=== PATIENT | female | born 1960 | race Caucasian/White ===

== ENCOUNTER 2020-12-01 19:52 | Outpatient (REF) | payer BC, SELFPAY ==
--- NOTE | 2020-12-01 09:30 | PAPFT_PTH ---
PATIENT: Jan[facility] Macias [facility] U[facility][id number] AGE/SX: 60/F ROOM: RE12/01/[address]: Kimberly Nicole : 1960 BED: DIS: 12/01/2020 SPEC #: [id number] RECD: 12/02/20 12:53 STATUS: CATHERINE REDeep #: [id number] RICHARD: 12/01/20 09:[address]: Karin Nicole DEPT: [facility] Cytology RECD BY: Rosemarie Joseph Tissues: 1 - CX/ENDOCX FOR PAP SMEARS Procedures: PAP THIN PREP/[facility] Screening HPV DNA PROBE Comments: [id number]
[2020-12-01 20:31] LABS: ALT 39 U/L (14-59); AST 25 U/L (15-37); Albumin 3.8 g/dL (3.4-5.0); Alkaline Phosphatase 63 U/L (46-116); Anion Gap 8.2 mmol/L (3-11); BUN 20 mg/dL (7-18); Bilirubin, Total 0.9 mg/dL (0.2-1.0); CO2 28.8 mmol/L (21.0-32.0); CREATININE 0.8 mg/dL (0.55-1.02); Calcium 8.8 mg/dL (8.5-10.1); Calculated LDL 164 mg/dL (<100); Chloride 106 mmol/L (98-107); Cholesterol 224 mg/dL (<200); Glucose 91 mg/dL (74-106); HDL Cholesterol 52 mg/dL (40-60); Potassium 3.6 mmol/L (3.5-5.1); Sodium 143 mmol/L (136-145); Triglyceride 42 mg/dL (<150)
== END 2020-12-01 19:53 | disposition home or self-care (01) ==
LOC: NCHCN 19:52
PROVIDERS: Visit Provider Nurse Practitioner Family
DX: Z12.4 Encounter for screening for malignant neoplasm of cervix (principal); Z13.220 Encounter for screening for lipoid disorders; Z00.00 Encounter for general adult medical examination without abnormal findings; Z11.51 Encounter for screening for human papillomavirus (HPV); Z01.419 Encounter for gynecological examination (general) (routine) without abnormal findings
CPT/HCPCS: 80053; 80061; 88142; 87624

== ENCOUNTER 2021-12-14 10:49 | Outpatient (REF) | payer BC, SELFPAY ==
[2021-12-14 20:13] LABS: ALT 31 U/L (14-59); AST 27 U/L (15-37); Alkaline Phosphatase 60 U/L (46-116); Anion Gap 0.5 mmol/L (3-11); BUN 17 mg/dL (7-18); Bilirubin, Total 1.3 mg/dL (0.2-1.0); CO2 33.5 mmol/L (21.0-32.0); Calcium 9.4 mg/dL (8.5-10.1); Calculated LDL 168 mg/dL (<100); Chloride 104 mmol/L (98-107); Cholesterol 243 mg/dL (<200); Estimated GFR 64.49 (mL/min/1.73m2); Glucose 89 mg/dL (74-106); HDL Cholesterol 63 mg/dL (40-60); Potassium 4.6 mmol/L (3.5-5.1); Sodium 138 mmol/L (136-145); Total Protein 7.7 g/dL (6.4-8.2); Triglyceride 60 mg/dL (<150)
== END 2021-12-14 10:50 | disposition home or self-care (01) ==
LOC: NCHCN 10:49
PROVIDERS: Visit Provider Nurse Practitioner Family
DX: Z00.00 Encounter for general adult medical examination without abnormal findings (principal); Z13.220 Encounter for screening for lipoid disorders; Z13.228 Encounter for screening for other metabolic disorders
CPT/HCPCS: 80053; 80061

== ENCOUNTER 2022-12-16 10:49 | Outpatient (REF) | payer BC, SELFPAY ==
[2022-12-16 19:39] LABS: ALT 35 U/L (14-59); AST 31 U/L (15-37); Anion Gap 8.2 mmol/L (3-11); BUN 20 mg/dL (7-18); CO2 28.8 mmol/L (21.0-32.0); CREATININE 0.9 mg/dL (0.55-1.02); Calcium 9.6 mg/dL (8.5-10.1); Calculated LDL 183 mg/dL (<100); Chloride 103 mmol/L (98-107); Cholesterol 259 mg/dL (<200); Estimated GFR 72.73 (mL/min/1.73m2); Glucose 99 mg/dL (74-106); HDL Cholesterol 65 mg/dL (40-60); Potassium 3.9 mmol/L (3.5-5.1); Sodium 140 mmol/L (136-145); Triglyceride 57 mg/dL (<150)
== END 2022-12-16 10:50 | disposition home or self-care (01) ==
LOC: NCHCN 10:49
PROVIDERS: Visit Provider Nurse Practitioner Family
DX: E78.5 Hyperlipidemia, unspecified (principal)
CPT/HCPCS: 80048; 80061; 84450; 84460

== ENCOUNTER 2023-03-28 10:13 | Outpatient (REF) | payer BC, SELFPAY ==
[2023-03-28 19:47] LABS: Calculated LDL 146 mg/dL (<100); Cholesterol 215 mg/dL (<200); HDL Cholesterol 55 mg/dL (40-60); Triglyceride 70 mg/dL (<150)
== END 2023-03-28 10:14 | disposition home or self-care (01) ==
LOC: NCHCN 10:13
PROVIDERS: Visit Provider Nurse Practitioner Family
DX: E78.5 Hyperlipidemia, unspecified (principal)
CPT/HCPCS: 80061

== ENCOUNTER 2023-12-19 09:16 | Outpatient (REF) | payer BC, SELFPAY ==
[2023-12-19 19:09] LABS: HCT 44.7 % (36.0-46.0); HGB 14.6 g/dL (11.2-15.7); MCH 31.1 pg (27.0-33.0); MCHC 32.7 % (32.0-36.0); MCV 95 fL (80-95); MPV 11.8 fL (8.0-11.0); Platelet Count 182 10^3/uL (130-400); RBC 4.69 10^6/uL (3.93-5.22); RDW 12.1 % (11.7-14.6); RDW-SD 42.4 fL; WBC 3.48 10^3/uL (4.4-10.8)
[2023-12-19 19:42] LABS: ALT 34 U/L (14-59); AST 32 U/L (15-37); Albumin 3.8 g/dL (3.4-5.0); Alkaline Phosphatase 64 U/L (46-116); Anion Gap 8.9 mmol/L (3-11); BUN 21 mg/dL (7-18); Bilirubin, Total 1.22 mg/dL (0.2-1.0); CO2 29.1 mmol/L (21.0-32.0); CREATININE 0.9 mg/dL (0.55-1.02); Calcium 9.7 mg/dL (8.5-10.1); Calculated LDL 161 mg/dL (<100); Chloride 104 mmol/L (98-107); Cholesterol 236 mg/dL (<200); Estimated GFR 72.28 (mL/min/1.73m2); Glucose 99 mg/dL (74-106); HDL Cholesterol 62 mg/dL (40-60); Potassium 4.2 mmol/L (3.5-5.1); Sodium 142 mmol/L (136-145); TSH (W/Ref FT4) 0.98 uIU/mL (0.36-3.74); Total Protein 8.3 g/dL (6.4-8.2); Triglyceride 69 mg/dL (<150)
== END 2023-12-19 09:17 | disposition home or self-care (01) ==
LOC: NCHCN 09:16
PROVIDERS: PCP Nurse Practitioner Family; Visit Provider Nurse Practitioner Family
DX: E78.5 Hyperlipidemia, unspecified (principal); Z83.2 Family history of diseases of the blood and blood-forming organs and certain disorders involving the immune mechanism; R63.4 Abnormal weight loss
CPT/HCPCS: 80053; 80061; 85027; 84443

== ENCOUNTER 2024-02-17 08:46 | Outpatient (REF) | payer BC, SELFPAY ==
[2024-02-17 19:25] LABS: Abs Immature Grans 0.01 10^3/uL (0.0-0.06); Absolute Basophil Count 0.02 10^3/uL (0.0-0.2); Absolute Eosinophil Count 0.05 10^3/uL (0.0-0.7); Absolute Monocyte Count 0.33 10^3/uL (0.1-0.8); Absolute Neutrophil Count 1.99 10^3/uL (1.2-6.7); Basophils % 0.6 %; Eosinophils % 1.4 %; HGB 14.1 g/dL (11.2-15.7); Immature Grans % 0.3 %; Lymphocytes % 31.4 %; MCH 31.6 pg (27.0-33.0); MCHC 32.8 % (32.0-36.0); MCV 96 fL (80-95); MPV 11.8 fL (8.0-11.0); Monocytes % 9.4 %; Neutrophils % 56.9 %; Platelet Count 176 10^3/uL (130-400); RBC 4.46 10^6/uL (3.93-5.22); RDW 12.1 % (11.7-14.6); RDW-SD 43.1 fL
== END 2024-02-17 08:47 | disposition home or self-care (01) ==
LOC: NCHCN 08:46
PROVIDERS: PCP Nurse Practitioner Family; Visit Provider Nurse Practitioner Family
DX: D72.819 Decreased white blood cell count, unspecified (principal)
CPT/HCPCS: 85025

== ENCOUNTER 2024-02-29 08:43 | Outpatient (REF) | payer BC, SELFPAY ==
[2024-02-29 20:47] LABS: Vitamin B12 493 pg/mL (193-986)
[2024-03-02 11:28] LABS: ANA Interpretation Negative (Negative)
[2024-03-05 12:14] LABS: Anti-DNase B Titer <77 U/mL (0 - 300)
== END 2024-02-29 08:44 | disposition home or self-care (01) ==
LOC: NCHCN 08:43
PROVIDERS: PCP Nurse Practitioner Family; Visit Provider Nurse Practitioner Family
DX: D72.819 Decreased white blood cell count, unspecified (principal)
CPT/HCPCS: 86215; 82607; 86038

== ENCOUNTER 2024-05-01 11:59 | Outpatient (REF) | payer BC, SELFPAY ==
[2024-05-01 19:01] LABS: Abs Immature Grans 0.01 10^3/uL (0.0-0.06); Absolute Basophil Count 0.02 10^3/uL (0.0-0.2); Absolute Eosinophil Count 0.05 10^3/uL (0.0-0.7); Absolute Lymphocyte Count 1.22 10^3/uL (1.2-3.4); Absolute Monocyte Count 0.37 10^3/uL (0.1-0.8); Absolute Neutrophil Count 2.02 10^3/uL (1.2-6.7); Basophils % 0.5 %; Eosinophils % 1.4 %; HCT 42.1 % (36.0-46.0); HGB 13.7 g/dL (11.2-15.7); Immature Grans % 0.3 %; Lymphocytes % 33.1 %; MCH 31.1 pg (27.0-33.0); MCHC 32.5 % (32.0-36.0); MCV 96 fL (80-95); MPV 11.5 fL (8.0-11.0); Neutrophils % 54.7 %; Platelet Count 186 10^3/uL (130-400); RDW 12.3 % (11.7-14.6); RDW-SD 43.3 fL; WBC 3.69 10^3/uL (4.4-10.8)
[2024-05-01 19:34] LABS: Folate 15.1 ng/mL (8.6-20.0)
== END 2024-05-01 12:00 | disposition home or self-care (01) ==
LOC: NCHCN 11:59
PROVIDERS: PCP Nurse Practitioner Family; Visit Provider Physician Assistant
DX: D72.819 Decreased white blood cell count, unspecified (principal)
CPT/HCPCS: 82746; 85025

== ENCOUNTER 2024-12-19 09:58 | Outpatient (REF) | payer BC, SELFPAY ==
[2024-12-19 21:47] LABS: HCT 43.6 % (36.0-46.0); HGB 14.3 g/dL (11.2-15.7); MCH 31.4 pg (27.0-33.0); MCHC 32.8 % (32.0-36.0); MCV 96 fL (80-95); MPV 12.8 fL (8.0-11.0); Platelet Count 150 10^3/uL (130-400); RBC 4.56 10^6/uL (3.93-5.22); RDW 12.2 % (11.7-14.6); RDW-SD 42.7 fL; WBC 3.32 10^3/uL (4.4-10.8)
[2024-12-19 22:06] LABS: ALT 41 U/L (14-59); AST 26 U/L (15-37); Albumin 3.8 g/dL (3.4-5.0); Alkaline Phosphatase 63 U/L (46-116); Anion Gap 4.5 mmol/L (3-11); BUN 19 mg/dL (7-18); Bilirubin, Total 1.1 mg/dL (0.2-1.0); CO2 33.5 mmol/L (21.0-32.0); Calcium 9.3 mg/dL (8.5-10.1); Calculated LDL 156 mg/dL (<100); Chloride 101 mmol/L (98-107); Cholesterol 222 mg/dL (<200); Estimated GFR 82.74 (mL/min/1.73m2); Glucose 88 mg/dL (74-106); HDL Cholesterol 51 mg/dL (>or=50); Potassium 4.1 mmol/L (3.5-5.1); Sodium 139 mmol/L (136-145); Total Protein 7.7 g/dL (6.4-8.2); Triglyceride 75 mg/dL (<150)
== END 2024-12-19 09:59 | disposition home or self-care (01) ==
LOC: NCHCN 09:58
PROVIDERS: PCP Nurse Practitioner Family; Visit Provider Nurse Practitioner Family
DX: E78.5 Hyperlipidemia, unspecified (principal); D72.819 Decreased white blood cell count, unspecified
CPT/HCPCS: 80053; 80061; 85027